=== PATIENT | male | born 1975 | race Caucasian/White ===

== ENCOUNTER 2021-12-09 13:40 | Outpatient (CLI) | payer BC | END 2021-12-09 13:41 | disposition home or self-care (01) | LOC: CSHULT 13:40 | PROVIDERS: ATTEND Family Medicine Sports Medicine | DX: N50.89 Other specified disorders of the male genital organs (principal); N50.3 Cyst of epididymis; N43.3 Hydrocele, unspecified | CPT/HCPCS: 76870; 93976 ==